=== PATIENT | male | born 1940 | race Hispanic/Latino ===

== ENCOUNTER 2017-10-05 05:49 | Inpatient (IN) | payer MEDICARE, OTHER ==
[2017-10-05 05:50] VITALS: BMI 23.6
--- NOTE | 2017-10-05 06:20 | C.PDOC ---
History Of Present Illness The patient presents to the ED for evaluation, stating he does not feel well and is experiencing numbness to his fingers and toes. He is on Milrinone drip through a right port-a-cath. He is speaking in complete sentences and denies chest pain, palpitations, and shortness of breath. Time Seen by Provider: 10/05/17 06:07 Chief Complaint (Nursing): Medical Clearance History Per: Patient History/Exam Limitations: no limitations Past Medical History Reviewed: Historical Data, Nursing Documentation, Vital Signs Vital Signs: Last Vital Signs Temp 98.4 F 10/05/17 06:06 Pulse 111 H 10/05/17 06:06 Resp 24 10/05/17 06:06 BP 123/78 10/05/17 06:06 Pulse Ox 97 10/05/17 06:46 - Medical History PMH: CHF, COPD, Depression, HTN, Hypercholesterolemia, Peripheral Edema, Pneumonia, Chronic Kidney Disease (BLADDER CA WITH SURGERY) Surgical History: Cholecystectomy, Coronary Stent (ptca 05/2015) Denies: Pacemaker - [facility] Procedures CORONAR ARTERIOGR-1 CATH (05/14/15) CORONAR ARTERIOGR-2 CATH (12/06/14) CORONARY ARTERY STENT INSERTION [id number] (12/06/14) INJECT/INFUSE PLATELET INHIBITOR (12/06/14) INSERTION OF ONE VASCULAR STENT (05/14/15) INSERTION OF VAD INTO CHEST SUBCU/FASCIA, PERC APPROACH (09/25/15) INSRT OF DRUG-ELUTING CORON ARTERY STENTS(S) (05/14/15) INTRODUCTION OF SERUM/TOX/VACCINE INTO MUSCLE, PERC APPROACH (06/26/16) LEFT HEART CARDIAC CATH (12/06/14) LT HEART ANGIOCARDIOGRAM (12/06/14) MEASURE CARDIAC SAMPL & PRESSURE, BILATERAL, PERC (09/25/15) NEBULIZER THERAPY (05/03/15) PACKED CELL TRANSFUSION (07/18/04) PERCUTANEOUS TRANSLUMINAL CORONARY ANGIOPLASTY [PTCA] (05/14/15) PROCEDURE ON SINGLE VESSEL (05/14/15) Family History: States: Unknown Family Hx - Social History Hx Alcohol Use: No Hx Substance Use: No - Immunization History Hx Tetanus Toxoid Vaccination: No Hx Influenza Vaccination: Yes Hx Pneumococcal Vaccination: No Review Of Systems Constitutional: Negative for: Fever, Chills Cardiovascular: Negative for: Chest Pain, Palpitations Respiratory: Negative for: Cough, Shortness of Breath Gastrointestinal: Negative for: Nausea, Vomiting Musculoskeletal: Negative for: Shoulder Pain, Arm Pain Skin: Negative for: Rash, Lesions, Jaundice, Bruising Neurological: Positive for: Numbness (to fingers and toes ) Psych: Negative for: Anxiety Physical Exam - Physical Exam Appears: Non-toxic, No Acute Distress Skin: Warm, Dry Head: Normacephalic Eye(s): bilateral: Normal Inspection Oral Mucosa: Moist Neck: Supple Chest: Symmetrical, No Deformity, No Tenderness, Other (right-sided port-a-cath present ) Cardiovascular: Rhythm Regular, No Murmur Respiratory: No Rales, No Rhonchi, No Wheezing Extremity: Normal ROM, Capillary Refill (less than 2 seconds ) Neurological/Psych: Oriented x3 ED Course And Treatment ECG: Interpreted By Me, Viewed By Me ECG Rhythm: Sinus Rhythm (99), R BBB, Nonspecific Changes O2 Sat by Pulse Oximetry: 97 (on RA) Pulse Ox Interpretation: Normal - Radiology CXR: Interpreted by Me, Viewed By Me CXR Interpretation: Yes: Cardiomegaly, Other (r rosa cath in place). No: Infiltrates, Fracture Progress Note: Bloodwork, UA, CXR, EKG, and Flu swab ordered. NIHSS Stroke Scale - Date/Time Evaluation Performed Date Performed: 10/05/17 Time Performed: 06:13 When Was NIHSS Performed: Baseline - How Severe is the Stroke Level of Consciousness: 0=Alert LOC to Questions: 0=Both comments correct LOC to commands: 0=Obeys both correctly Best Gaze: 0=Normal Visual: 0=No visual loss Facial: 0=Normal Motor Arm - Left: 0=No drift Motor Arm - Right: 0=No drift Motor Leg - Left: 0=No drift Motor Leg - Right: 0=No drift Limb Ataxia: 0=Absent Sensory: 0=Normal Best Language: 0=No aphasia Dysarthia: 0=Normal articulation Extinction & Inattention (Neglect): 0=Normal, no object Score: 0 Disposition Counseled Patient/Family Regarding: Studies Performed, Diagnosis - Disposition Disposition Time: 06:20 Condition: FAIR Forms: [facility] (Albanian) - Clinical Impression Clinical Impression: Medical assessment - Scribe Statement The provider has reviewed the documentation as recorded by the Scribe (Dina Brown) Provider Attestation: All medical record entries made by the Scribe were at my direction and personally dictated by me. I have reviewed the chart and agree that the record accurately reflects my personal performance of the history, physical exam, medical decision making, and the department course for this patient. I have also personally directed, reviewed, and agree with the discharge instructions and disposition. Physician Patient Turnover Patient Signed Over To: Carina Wilder Handoff Comments: pending labs and dispostion
[2017-10-05 06:49] LABS: BASO % 0.7 % (0.0-2.0); EOS # 0.2 K/uL (0.0-0.7); EOS % 2.7 % (0.0-4.0); HEMOGLOBIN 12.3 g/dL (12.0-18.0); LYMPH # 1.1 K/uL (1.0-4.3); LYMPH % 15.8 % (20.0-40.0); MEAN CELL VOLUME 88.1 fL (80.0-94.0); MEAN CORPUSCULAR HEMOGLOBIN 30.4 pg (27.0-31.0); MEAN CORPUSCULAR HGB CONC 34.5 g/dL (33.0-37.0); MONO # 0.5 K/uL (0.0-0.8); MONO % 7.6 % (0.0-10.0); NEUT # 5.1 K/uL (1.8-7.0); NEUT % 73.2 % (50.0-75.0); RBC 4.04 Mil/uL (4.40-5.90); RED CELL DISTRIBUTION WIDTH 15.3 % (11.5-14.5)
[2017-10-05 06:52] LABS: SQUAMOUS EPITHIAL < 1 /hpf (0-5); URINE BACTERIA RARE (<OCC); URINE BILIRUBIN NEGATIVE (NEGATIVE); URINE BLOOD NEGATIVE (NEGATIVE); URINE CLARITY Clear (Clear); URINE COLOR Straw (YELLOW); URINE GLUCOSE (UA) NORMAL (Normal); URINE LEUKOCYTE ESTERASE NEG Leu/uL (Negative); URINE NITRATE POSITIVE (NEGATIVE); URINE PROTEIN NEGATIVE (NEGATIVE); URINE UROBILINOGEN NORMAL mg/dL (0.2-1.0)
[2017-10-05 06:53] LABS: PROTHROMBIN TIME 10.6 SECONDS (9.7-12.2)
[2017-10-05 07:06] LABS: ALB/GLOB RATIO 1.4 (1.0-2.1); ALBUMIN 3.8 g/dL (3.5-5.0); CALCIUM 9.5 mg/dl (8.6-10.4)
[2017-10-05 07:16] LABS: TROPONIN I 0.073 ng/mL (0.00-0.120)
--- NOTE | 2017-10-05 08:59 | RAD ---
PROCEDURE: CHEST RADIOGRAPH, 1 VIEW HISTORY: chest pain COMPARISON: None available. FINDINGS: LUNGS: Subsegmental atelectasis at right base. No pulmonary infiltrate. PLEURA: No pneumothorax or pleural fluid seen. CARDIOVASCULAR: Normal heart size. Right IJ central venous infusion port. OSSEOUS STRUCTURES: No significant abnormalities. VISUALIZED UPPER ABDOMEN: Normal. OTHER FINDINGS: None. IMPRESSION: No acute infiltrate. Right basilar subsegmental atelectasis.
--- NOTE | 2017-10-05 09:11 | CT ---
PROCEDURE: CT HEAD WITHOUT CONTRAST. HISTORY: numbness/tingling hands/feet, headache COMPARISON: None available. TECHNIQUE: Axial computed tomography images were obtained through the head/brain without intravenous contrast. Radiation dose: Total exam DLP = 935.18 mGy-cm. This CT exam was performed using one or more of the following dose reduction techniques: Automated exposure control, adjustment of the mA and/or kV according to patient size, and/or use of iterative reconstruction technique. FINDINGS: HEMORRHAGE: No intracranial hemorrhage. BRAIN: No mass effect or edema. Mild to moderate diffuse age-appropriate cerebral atrophy. Minimal periventricular white matter lucency consistent with chronic microvascular ischemic change. No evidence of acute infarct. VENTRICLES: Unremarkable. No hydrocephalus. CALVARIUM: Unremarkable. PARANASAL SINUSES: Mild chronic ethmoid and right frontal sinusitis. MASTOID AIR CELLS: Trace left mastoid effusion common nonspecific. OTHER FINDINGS: None. IMPRESSION: No intracranial mass, hemorrhage or evidence of acute infarct. Age-appropriate involutional change. Trace left mastoid effusion. Mild chronic ethmoid and right frontal sinusitis. No additional abnormality.
[2017-10-05] MEDS ORDERED: Milrinone 1 mg/ml Inj IV SCH (14:00)
[2017-10-05] MEDS ORDERED: Milrinone 20 MG in Dextrose 5% In Water 80 ML IV SCH (14:30)
--- NOTE | 2017-10-05 15:19 | CP.PCM.CON ---
<Sean Li - Last Filed: 10/05/17 14:45> History of Present Illness - History of Present Illness History of Present Illness: Cardiology Consult Note for Dr. Ambrosio CC: Cold hands and feet Pt is a 77 yo male with PMH of COPD, CKD, bladder CA, HTN, CAD, NC (2014), and CHF on milrinone at home via port-a-cath presents to due to increasing numbness and coldness in b/l hands and feet. Pt states that symptoms began overnight around 2:30 AM. Pt denies any pain at rest or while ambulating. Pt denies any past occurrences. Pt stated that he also had increased shortness of breath, but believes it was due to increased coldness in his extremities. Pt states that he is normally short of breath and requires 3L of O2 via NC at home. Pt is able to ambulate, but becomes short of breath if he has to walk up stairs. At time of interview, pt states that increased shortness of breath had resolved and was comfortable with nasal canula. Pt denied CP, n/v/d, abdominal pain, fever, chills, [place], or dizziness. PMH: COPD (on 3L NC at home), CKD, bladder CA, CAD, anterior wall NC, CHF, and HTN Surg: Port-a-cath placement, cardiac catherization, cystectomy All: NKDA FHx: Non-contributory SH: Former 2-3 PPD for 40 years (quit 2.5 yrs ago), social EtOH use, denied illicit drug use Review of Systems - Review of Systems Review of Systems: 12 point ROS reviewed and is negative other than what is stated in HPI. Past Patient History - Infectious Disease Hx of Infectious Diseases: None - Past Social History Smoking Status: Former Smoker - CARDIAC Hx Congestive Heart Failure: Yes Hx Hypercholesterolemia: Yes Hx Hypertension: Yes Hx Pacemaker: No Hx Peripheral Edema: Yes - PULMONARY Hx Chronic Obstructive Pulmonary Disease (COPD): Yes Hx Pneumonia: Yes - NEUROLOGICAL Hx Paralysis: No - HEENT Hx HEENT Problems: Yes Other/Comment: hearing problem - RENAL Hx Chronic Kidney Disease: Yes (BLADDER CA WITH SURGERY) - ENDOCRINE/METABOLIC Hx Endocrine Disorders: No - HEMATOLOGICAL/ONCOLOGICAL Hx Blood Transfusions: No - INTEGUMENTARY Hx Dermatological Problems: No - MUSCULOSKELETAL/RHEUMATOLOGICAL Hx Musculoskeletal Disorders: No - GASTROINTESTINAL Hx Gastrointestinal Disorders: Yes Other/Comment: hernia- inguinal - GENITOURINARY/GYNECOLOGICAL Hx Genitourinary Disorders: Yes Hx Bladder Cancer: Yes Other/Comment: urostomy - PSYCHIATRIC Hx Depression: Yes Hx Substance Use: No - SURGICAL HISTORY Hx Cholecystectomy: Yes Hx Coronary Stent: Yes (ptca 05/2015) - ANESTHESIA Hx Anesthesia: Yes Hx Anesthesia Reactions: No Meds Allergies/Adverse Reactions: Allergies Allergy/AdvReac Type Severity Reaction Status Date / Time No Known Allergies Allergy Verified 10/05/17 06:16 - Medications Medications: Current Medications Milrinone Lactate/Dextrose 20 (mg/ Dextrose) 100 mls @ 7.26 mls/hr IV .[id number] PING; 0.3 MCG/KG/MIN PRN Reason: Protocol Physical Exam - Constitutional Appears: No Acute Distress - Head Exam Head Exam: NORMAL INSPECTION - Eye Exam Eye Exam: Normal appearance - ENT Exam ENT Exam: Normal Exam - Neck Exam Neck exam: Positive for: Normal Inspection - Respiratory Exam Respiratory Exam: Accessory Muscle Use. absent: Rales, Rhonchi, Wheezes, Respiratory Distress - Cardiovascular Exam Cardiovascular Exam: RRR, +S1, +S2. absent: Diastolic murmur, Gallop, Rubs, Systolic Murmur - GI/Abdominal Exam GI & Abdominal Exam: Soft. absent: Distended, Guarding, Organomegaly, Rebound, Tenderness - Extremities Exam Extremities exam: Positive for: pedal pulses present Additional comments: B/L fingers/toes cold to touch, minimal LE edema, no tenderness on palpation, no erythema - Neurological Exam Neurological exam: Alert, Oriented x3 - Psychiatric Exam Psychiatric exam: Normal Affect - Skin Skin Exam: Dry, Intact, Normal Color Results - Vital Signs Recent Vital Signs: Last Vital Signs Temp 98.4 F 10/05/17 06:06 Pulse 107 H 10/05/17 14:37 Resp 18 10/05/17 14:37 BP 106/67 10/05/17 14:37 Pulse Ox 98 10/05/17 14:37 - Labs Result Diagrams: 10/05/17 06:41 10/05/17 06:41 Labs: Laboratory Results - last 24 hr 10/05/17 10/05/17 10/05/17 06:39 06:41 06:41 WBC 7.0 RBC 4.04 L Hgb 12.3 Hct 35.6 MCV 88.1 MCH 30.4 MCHC 34.5 RDW 15.3 H Plt Count 169 MPV 7.0 L Neut % (Auto) 73.2 Lymph % (Auto) 15.8 L [place] % (Auto) 7.6 Eos % (Auto) 2.7 Baso % (Auto) 0.7 Neut # (Auto) 5.1 Lymph # (Auto) 1.1 [place] # (Auto) 0.5 Eos # (Auto) 0.2 Baso # (Auto) 0.0 PT 10.6 INR 1.0 APTT 30 Sodium Potassium Chloride Carbon Dioxide Anion Gap BUN Creatinine Est GFR ( Amer) Est GFR (Non-Af Amer) Random Glucose Calcium Total Bilirubin AST ALT Alkaline Phosphatase Troponin I NT-Pro-B Natriuret Pep Total Protein Albumin Globulin Albumin/Globulin Ratio Urine Color Straw Urine Clarity Clear Urine pH 6.0 Ur Specific [place] 1.008 Urine Protein Negative Urine Glucose (UA) Normal Urine Ketones Negative Urine Blood Negative Urine Nitrate Positive H Urine Bilirubin Negative Urine Urobilinogen Normal Ur Leukocyte Esterase Neg Urine WBC (Auto) 2 Urine RBC (Auto) 1 Ur Squamous Epith Cells < 1 Urine Bacteria Rare Influenza Typ A,B (EIA) 10/05/17 10/05/17 06:41 07:17 WBC RBC Hgb Hct MCV MCH MCHC RDW Plt Count MPV Neut % (Auto) Lymph % (Auto) [place] % (Auto) Eos % (Auto) Baso % (Auto) Neut # (Auto) Lymph # (Auto) [place] # (Auto) Eos # (Auto) Baso # (Auto) PT INR APTT Sodium 138 Potassium 4.0 Chloride 105 Carbon Dioxide 22 Anion Gap 15 BUN 53 H Creatinine 2.7 H Est GFR ( Amer) 28 Est GFR (Non-Af Amer) 23 Random Glucose 93 Calcium 9.5 Total Bilirubin 0.4 AST 24 ALT 24 Alkaline Phosphatase 76 Troponin I 0.0730 NT-Pro-B Natriuret Pep 919 H Total Protein 6.5 Albumin 3.8 Globulin 2.7 Albumin/Globulin Ratio 1.4 Urine Color Urine Clarity Urine pH Ur Specific [place] Urine Protein Urine Glucose (UA) Urine Ketones Urine Blood Urine Nitrate Urine Bilirubin Urine Urobilinogen Ur Leukocyte Esterase Urine WBC (Auto) Urine RBC (Auto) Ur Squamous Epith Cells Urine Bacteria Influenza Typ A,B (EIA) Negative for flu a/b Assessment & Plan - Assessment and Plan (Free Text) Assessment: 77 yo M with PMH of COPD (on 3L NC at home), CKD, bladder CA, CAD, anterior wall NC, CHF, and HTN presents to due to increased coldness/numbness in hands and feet and increased dyspnea. Due to patient's significant cardiac history, current cardiac status will be evaluated. Pt will also be evaluated for PAD vs Vasculitis. Plan: 1. Chronic CHF with reduced EF - BNP 919 - Cardiac catherization on 11/24/17 revealed RA mean pressure of 8, RV pressure 36/8, PA pressure 36/14, PCWP 14, CO 4.9 L/min, Cardiac Index 2.6L/min/m2 - Echo on 05/31/16 showed EF 20-25%, dilated LV, LA - Echo ordered - Cont Aldactone, Milrinone, Metolazone, Lasix, Lopressor and [place] 2. H/o CAD - Cont ASA, Crestor - Troponin 0.073, trend x2 3. Extremity Parasthesia/Coldness - PAD vs. Vasculitis vs. Neuropathy - LE arterial duplex ordered - ESR, CRP ordered - TSH ordered GI/DVT PPx - Per primary Pt seen and discussed in detail with Dr. Ambrosio. Sean Li, PGY1 <Emerson Ambrosio - Last Filed: 10/05/17 22:31> Meds - Medications Medications: Current Medications Clopidogrel Bisulfate (Plavix) 75 mg PO QAM [facility] Furosemide (Lasix) 40 mg IVP Q12 [facility] Last Admin: 10/05/17 22:30 Dose: 40 mg Heparin Sodium (Porcine) (Heparin) 5,000 units SC Q8 [facility] Last Admin: 10/05/17 22:30 Dose: 5,000 units Home Med (Patient's Own Medication) 2.5 tab PO TID [facility] Last Admin: 10/05/17 18:43 Dose: 2.5 tab Milrinone Lactate/Dextrose 20 (mg/ Dextrose) 100 mls @ 7.26 mls/hr IV .[id number] [facility]; 0.3 MCG/KG/MIN PRN Reason: Protocol Last Admin: 10/05/17 20:40 Dose: Not Given Metolazone (Zaroxolyn) 5 mg PO QWK [facility] Metoprolol Tartrate (Lopressor) 50 mg PO BID [facility] Last Admin: 10/05/17 18:30 Dose: Not Given Potassium Chloride (K-Dur 20 Meq Er Tab) 20 meq PO QWK PING Rosuvastatin Calcium (Crestor) 20 mg PO QPM [facility] Last Admin: 10/05/17 18:41 Dose: 20 mg Spironolactone (Aldactone) 25 mg PO DAILY [facility] Temazepam (Restoril) 15 mg PO HS PRN PRN Reason: Insomnia Results - Vital Signs Recent Vital Signs: Last Vital Signs Temp 97.9 F 10/05/17 19:45 Pulse 102 H 10/05/17 19:45 Resp 18 10/05/17 19:45 BP 111/71 10/05/17 22:30 Pulse Ox 96 10/05/17 19:45 - Labs Result Diagrams: 10/05/17 06:41 10/05/17 06:41 Labs: Laboratory Results - last 24 hr 10/05/17 10/05/17 10/05/17 06:39 06:41 06:41 WBC 7.0 RBC 4.04 L Hgb 12.3 Hct 35.6 MCV 88.1 MCH 30.4 MCHC 34.5 RDW 15.3 H Plt Count 169 MPV 7.0 L Neut % (Auto) 73.2 Lymph % (Auto) 15.8 L [place] % (Auto) 7.6 Eos % (Auto) 2.7 Baso % (Auto) 0.7 Neut # (Auto) 5.1 Lymph # (Auto) 1.1 [place] # (Auto) 0.5 Eos # (Auto) 0.2 Baso # (Auto) 0.0 ESR PT 10.6 INR 1.0 APTT 30 Sodium Potassium Chloride Carbon Dioxide Anion Gap BUN Creatinine Est GFR ( Amer) Est GFR (Non-Af Amer) Random Glucose Calcium Total Bilirubin AST ALT Alkaline Phosphatase Total Creatine Kinase CK-MB (Mass) Troponin I C-React Prot High Sens NT-Pro-B Natriuret Pep Total Protein Albumin Globulin Albumin/Globulin Ratio TSH 3rd Generation Urine Color Straw Urine Clarity Clear Urine pH 6.0 Ur Specific [place] 1.008 Urine Protein Negative Urine Glucose (UA) Normal Urine Ketones Negative Urine Blood Negative Urine Nitrate Positive H Urine Bilirubin Negative Urine Urobilinogen Normal Ur Leukocyte Esterase Neg Urine WBC (Auto) 2 Urine RBC (Auto) 1 Ur Squamous Epith Cells < 1 Urine Bacteria Rare Influenza Typ A,B (EIA) 10/05/17 10/05/17 10/05/17 06:41 07:17 15:44 WBC RBC Hgb Hct MCV MCH MCHC RDW Plt Count MPV Neut % (Auto) Lymph % (Auto) [place] % (Auto) Eos % (Auto) Baso % (Auto) Neut # (Auto) Lymph # (Auto) [place] # (Auto) Eos # (Auto) Baso # (Auto) ESR 21 H PT INR APTT Sodium 138 Potassium 4.0 Chloride 105 Carbon Dioxide 22 Anion Gap 15 BUN 53 H Creatinine 2.7 H Est GFR ( Amer) 28 Est GFR (Non-Af Amer) 23 Random Glucose 93 Calcium 9.5 Total Bilirubin 0.4 AST 24 ALT 24 Alkaline Phosphatase 76 Total Creatine Kinase CK-MB (Mass) Troponin I 0.0730 C-React Prot High Sens NT-Pro-B Natriuret Pep 919 H Total Protein 6.5 Albumin 3.8 Globulin 2.7 Albumin/Globulin Ratio 1.4 TSH 3rd Generation Urine Color Urine Clarity Urine pH Ur Specific [place] Urine Protein Urine Glucose (UA) Urine Ketones Urine Blood Urine Nitrate Urine Bilirubin Urine Urobilinogen Ur Leukocyte Esterase Urine WBC (Auto) Urine RBC (Auto) Ur Squamous Epith Cells Urine Bacteria Influenza Typ A,B (EIA) Negative for flu a/b 10/05/17 10/05/17 10/05/17 15:44 15:44 16:13 WBC RBC Hgb Hct MCV MCH MCHC RDW Plt Count MPV Neut % (Auto) Lymph % (Auto) [place] % (Auto) Eos % (Auto) Baso % (Auto) Neut # (Auto) Lymph # (Auto) [place] # (Auto) Eos # (Auto) Baso # (Auto) ESR PT INR APTT Sodium Potassium Chloride Carbon Dioxide Anion Gap BUN Creatinine Est GFR ( Amer) Est GFR (Non-Af Amer) Random Glucose Calcium Total Bilirubin AST ALT Alkaline Phosphatase Total Creatine Kinase 150 CK-MB (Mass) 3.66 H Troponin I 0.0710 C-React Prot High Sens 0.90 L NT-Pro-B Natriuret Pep Total Protein Albumin Globulin Albumin/Globulin Ratio TSH 3rd Generation 0.65 Urine Color Urine Clarity Urine pH Ur Specific [place] Urine Protein Urine Glucose (UA) Urine Ketones Urine Blood Urine Nitrate Urine Bilirubin Urine Urobilinogen Ur Leukocyte Esterase Urine WBC (Auto) Urine RBC (Auto) Ur Squamous Epith Cells Urine Bacteria Influenza Typ A,B (EIA) Attending/Attestation - Attestation I have personally seen and examined this patient.: Yes I have fully participated in the care of the patient.: Yes I have reviewed all pertinent clinical information: Yes
[2017-10-05 16:21] LABS: TROPONIN I 0.071 ng/mL (0.00-0.120)
[2017-10-05 16:23] LABS: CK-MB 3.66 ng/mL (0.0-3.38)
[2017-10-05] MEDS: ADEMPAS 2.5 MG PO SCH (18:43)
[2017-10-05] MEDS: Milrinone 20 MG in Dextrose 5% In Water 80 ML IV SCH (20:40)
--- NOTE | 2017-10-05 23:44 | CP.PCM.HP ---
History of Present Illness - History of Present Illness History of Present Illness: CC" shortness of breath , Cold hands and feet Pt is a 77 yo male with PMH of COPD, CKD, bladder CA, HTN, CAD, LA (2014), and CHF on milrinone at home via port-a-cath presents to due to increasing numbness and coldness in b/l hands and feet.He has been followed by gasket inspector senior project manager engineering, he has been doing well up untill last night when he develpoed pregressively wworsening shortness of breth, neck pain and cold extremities. Pt states that symptoms began overnight around 2:30 AM. Pt denies any pain at rest or while ambulating. Pt denies any past occurrences. Pt stated that he also had increased shortness of breath, but believes it was due to increased coldness in his extremities. Pt states that he is normally short of breath and requires 3L of O2 via NC at home. Pt is able to ambulate, but becomes short of breath if he has to walk up stairs. At time of interview, pt states that increased shortness of breath had resolved and was comfortable with nasal canula. Pt denied CP, n/v/d, abdominal pain, fever, chills, DAV[place], or dizziness. 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 (quit 2.5 yrs ago), social EtOH use, denied illicit drug use Review of Systems - Review of Systems Systems not reviewed;Unavailable: Acuity of Condition - Constitutional Constitutional: Fatigue, Lethargy, Malaise, Weakness - EENT Eyes: absent: As Per HPI, Blind Spots, Blurred Vision, Change in Vision, Decreased Night Vision, Diplopia, Discharge, Dry Eye, Exophthalmos, Floaters, Irritation, Itchy Eyes, Loss of Peripheral Vision, Pain, Photophobia, Requires Corrective Lenses, Sees Flashes, Spots in Vision, Tunnel Vision, Other Visual Disturbances, Loss of Vision, Other Nose/Mouth/Throat: absent: As Per HPI, Epistaxis, Nasal Congestion, Nasal Discharge, Nasal Obstruction, Nasal Trauma, Nose Pain, Post Nasal Drip, Sinus Pain, Sinus Pressure, Bleeding Gums, Change in Voice, Dental Pain, Dry Mouth, Dysphagia, Halitosis, Hoarsness, Lip Swelling, Mouth Lesions, Mouth Pain, Odynophagia, Sore Throat, Throat Swelling, Tongue Swelling, Facial Pain, Neck Pain, Neck Mass, Other - Gastrointestinal Gastrointestinal: absent: As Per HPI, Abdominal Pain, Belching, Bloating, Change in Bowel Habits, Change in Stool Character, Coffee Ground Emesis, Constipation, Cramping, Diarrhea, Dyspepsia, Dysphagia, Early Satiety, Excessive Flatus, Fecal Incontinence, Heartburn, Hematemesis, Hematochezia, Loose Stools, Melena, Nausea, Odynophagia, Temesmus, Vomiting, Other - Musculoskeletal Musculoskeletal: Muscle Weakness, Myalgias, Neck Pain - Integumentary Integumentary: Dry Skin - Neurological Neurological: Abnormal Gait, Dizziness, Weakness Past Patient History - Infectious Disease Hx of Infectious Diseases: None - Past Medical History & Family History Past Medical History?: Yes - Past Social History Smoking Status: Former Smoker - CARDIAC Hx Cardiac Disorders: Yes Hx Congestive Heart Failure: Yes Hx Hypercholesterolemia: Yes Hx Hypertension: Yes Hx Pacemaker: No Hx Peripheral Edema: Yes - PULMONARY Hx Respiratory Disorders: Yes Hx Chronic Obstructive Pulmonary Disease (COPD): Yes Hx Pneumonia: Yes - NEUROLOGICAL Hx Neurological Disorder: No Hx Paralysis: No - HEENT Hx HEENT Problems: Yes Other/Comment: hearing problem - RENAL Hx Chronic Kidney Disease: Yes (BLADDER CA WITH SURGERY) - ENDOCRINE/METABOLIC Hx Endocrine Disorders: No - HEMATOLOGICAL/ONCOLOGICAL Hx Blood Transfusions: Yes - INTEGUMENTARY Hx Dermatological Problems: No - MUSCULOSKELETAL/RHEUMATOLOGICAL Hx Musculoskeletal Disorders: No Hx Back Pain: Yes Hx Falls: Yes - GASTROINTESTINAL Hx Gastrointestinal Disorders: Yes Other/Comment: hernia- inguinal - GENITOURINARY/GYNECOLOGICAL Hx Genitourinary Disorders: Yes Hx Bladder Cancer: Yes Other/Comment: urostomy - PSYCHIATRIC Hx Psychophysiologic Disorder: Yes Hx Depression: Yes Hx Substance Use: No - SURGICAL HISTORY Hx Surgeries: Yes Hx Cholecystectomy: Yes Hx Coronary Stent: Yes (ptca 05/2015) - ANESTHESIA Hx Anesthesia: Yes Hx Anesthesia Reactions: No Meds Allergies/Adverse Reactions: Allergies Allergy/AdvReac Type Severity Reaction Status Date / Time No Known Allergies Allergy Verified 10/05/17 06:16 Physical Exam - Constitutional Appears: No Acute Distress - Head Exam Head Exam: ATRAUMATIC, NORMAL INSPECTION, NORMOCEPHALIC - Eye Exam Eye Exam: EOMI, Normal appearance, PERRL Pupil Exam: NORMAL ACCOMODATION, PERRL - Respiratory Exam Respiratory Exam: Decreased Breath Sounds, Rhonchi - Cardiovascular Exam Cardiovascular Exam: REGULAR RHYTHM - GI/Abdominal Exam GI & Abdominal Exam: Normal Bowel Sounds, Soft. absent: Tenderness - Rectal Exam Rectal Exam: Deferred - Back Exam Additional comments: decresed sensation b/l feet - Neurological Exam Neurological exam: Alert, Oriented x3 - Psychiatric Exam Psychiatric exam: Normal Affect - Skin Skin Exam: Pallor, Warm Results - Vital Signs Recent Vital Signs: Last Vital Signs Temp 97.9 F 10/05/17 20:30 Pulse 64 10/05/17 20:30 Resp 16 10/05/17 20:30 BP 111/71 10/05/17 22:30 Pulse Ox 96 10/05/17 20:30 - Labs Result Diagrams: 10/05/17 06:41 10/05/17 06:41 Labs: Laboratory Results - last 24 hr 10/05/17 10/05/17 10/05/17 06:39 06:41 06:41 WBC 7.0 RBC 4.04 L Hgb 12.3 Hct 35.6 MCV 88.1 MCH 30.4 MCHC 34.5 RDW 15.3 H Plt Count 169 MPV 7.0 L Neut % (Auto) 73.2 Lymph % (Auto) 15.8 L Grainger % (Auto) 7.6 Eos % (Auto) 2.7 Baso % (Auto) 0.7 Neut # (Auto) 5.1 Lymph # (Auto) 1.1 Grainger # (Auto) 0.5 Eos # (Auto) 0.2 Baso # (Auto) 0.0 ESR PT 10.6 INR 1.0 APTT 30 Sodium Potassium Chloride Carbon Dioxide Anion Gap BUN Creatinine Est GFR ( Amer) Est GFR (Non-Af Amer) Random Glucose Calcium Total Bilirubin AST ALT Alkaline Phosphatase Total Creatine Kinase CK-MB (Mass) Troponin I C-React Prot High Sens NT-Pro-B Natriuret Pep Total Protein Albumin Globulin Albumin/Globulin Ratio TSH 3rd Generation Urine Color Straw Urine Clarity Clear Urine pH 6.0 Ur Specific [place] 1.008 Urine Protein Negative Urine Glucose (UA) Normal Urine Ketones Negative Urine Blood Negative Urine Nitrate Positive H Urine Bilirubin Negative Urine Urobilinogen Normal Ur Leukocyte Esterase Neg Urine WBC (Auto) 2 Urine RBC (Auto) 1 Ur Squamous Epith Cells < 1 Urine Bacteria Rare Influenza Typ A,B (EIA) 10/05/17 10/05/17 10/05/17 06:41 07:17 15:44 WBC RBC Hgb Hct MCV MCH MCHC RDW Plt Count MPV Neut % (Auto) Lymph % (Auto) Grainger % (Auto) Eos % (Auto) Baso % (Auto) Neut # (Auto) Lymph # (Auto) Grainger # (Auto) Eos # (Auto) Baso # (Auto) ESR 21 H PT INR APTT Sodium 138 Potassium 4.0 Chloride 105 Carbon Dioxide 22 Anion Gap 15 BUN 53 H Creatinine 2.7 H Est GFR ( Amer) 28 Est GFR (Non-Af Amer) 23 Random Glucose 93 Calcium 9.5 Total Bilirubin 0.4 AST 24 ALT 24 Alkaline Phosphatase 76 Total Creatine Kinase CK-MB (Mass) Troponin I 0.0730 C-React Prot High Sens NT-Pro-B Natriuret Pep 919 H Total Protein 6.5 Albumin 3.8 Globulin 2.7 Albumin/Globulin Ratio 1.4 TSH 3rd Generation Urine Color Urine Clarity Urine pH Ur Specific [place] Urine Protein Urine Glucose (UA) Urine Ketones Urine Blood Urine Nitrate Urine Bilirubin Urine Urobilinogen Ur Leukocyte Esterase Urine WBC (Auto) Urine RBC (Auto) Ur Squamous Epith Cells Urine Bacteria Influenza Typ A,B (EIA) Negative for flu a/b 10/05/17 10/05/17 10/05/17 15:44 15:44 16:13 WBC RBC Hgb Hct MCV MCH MCHC RDW Plt Count MPV Neut % (Auto) Lymph % (Auto) Grainger % (Auto) Eos % (Auto) Baso % (Auto) Neut # (Auto) Lymph # (Auto) Grainger # (Auto) Eos # (Auto) Baso # (Auto) ESR PT INR APTT Sodium Potassium Chloride Carbon Dioxide Anion Gap BUN Creatinine Est GFR ( Amer) Est GFR (Non-Af Amer) Random Glucose Calcium Total Bilirubin AST ALT Alkaline Phosphatase Total Creatine Kinase 150 CK-MB (Mass) 3.66 H Troponin I 0.0710 C-React Prot High Sens 0.90 L NT-Pro-B Natriuret Pep Total Protein Albumin Globulin Albumin/Globulin Ratio TSH 3rd Generation 0.65 Urine Color Urine Clarity Urine pH Ur Specific [place] Urine Protein Urine Glucose (UA) Urine Ketones Urine Blood Urine Nitrate Urine Bilirubin Urine Urobilinogen Ur Leukocyte Esterase Urine WBC (Auto) Urine RBC (Auto) Ur Squamous Epith Cells Urine Bacteria Influenza Typ A,B (EIA) Assessment & Plan (1) Acute on chronic heart failure Assessment and Plan: most likely its dilated non ischemic cardiomyopathy Status: Acute (2) CHF exacerbation Status: Acute (3) COPD exacerbation Status: Acute
[2017-10-06] MEDS: Milrinone 20 MG in Dextrose 5% In Water 80 ML IV SCH ×2 (02:50→18:27)
[2017-10-06 06:12] LABS: BASO # 0.1 K/uL (0.0-0.2); BASO % 0.9 % (0.0-2.0); EOS # 0.2 K/uL (0.0-0.7); EOS % 3.2 % (0.0-4.0); HEMOGLOBIN 12.2 g/dL (12.0-18.0); LYMPH # 1.3 K/uL (1.0-4.3); LYMPH % 19.7 % (20.0-40.0); MEAN CELL VOLUME 87.7 fL (80.0-94.0); MEAN CORPUSCULAR HEMOGLOBIN 30.6 pg (27.0-31.0); MEAN CORPUSCULAR HGB CONC 34.9 g/dL (33.0-37.0); MONO # 0.7 K/uL (0.0-0.8); MONO % 10.5 % (0.0-10.0); NEUT # 4.2 K/uL (1.8-7.0); NEUT % 65.7 % (50.0-75.0); RBC 3.98 Mil/uL (4.40-5.90); RED CELL DISTRIBUTION WIDTH 15.3 % (11.5-14.5); WHITE BLOOD COUNT 6.3 K/uL (4.8-10.8)
[2017-10-06 10:00] LABS: CALCIUM 9.1 mg/dl (8.6-10.4); MAGNESIUM 1.6 mg/dL (1.6-2.3)
[2017-10-06] MEDS: ADEMPAS 2.5 MG PO SCH ×4 (10:00→18:25)
--- NOTE | 2017-10-06 10:49 | CP.PCM.PN ---
<JenSean - Last Filed: 10/06/17 11:57> Subjective - Date & Time of Evaluation Date of Evaluation: 10/06/17 Time of Evaluation: 10:47 - Subjective Subjective: Cardiology Progress Note for Dr. Ambrosio Pt seen and examined at bedside. No acute overnight events. Pt states the UE/LE numbness/coldness has improved. Pt states that SOB is at baseline. Pt denied CP , palpitations, n/v/d, abdominal pain, fever, chills, [place], or dizziness. Objective - Vital Signs/Intake and Output Vital Signs (last 24 hours): Temp Pulse Resp BP Pulse Ox 97.4 F L 102 H 20 100/63 97 10/06/17 08:00 10/06/17 08:00 10/06/17 08:00 10/06/17 08:00 10/06/17 08:00 Intake and Output: 10/06/17 10/06/17 06:59 18:59 Intake Total 208 Output Total 200 720 Balance -200 -512 - Medications Medications: Current Medications Clopidogrel Bisulfate (Plavix) 75 mg PO QAM [facility] Furosemide (Lasix) 40 mg IVP Q12 [facility] Last Admin: 10/05/17 22:30 Dose: 40 mg Heparin Sodium (Porcine) (Heparin) 5,000 units SC Q8 [facility] Last Admin: 10/06/17 06:08 Dose: 5,000 units Home Med (Patient's Own Medication) 2.5 tab PO TID [facility] Last Admin: 10/05/17 18:43 Dose: 2.5 tab Milrinone Lactate/Dextrose 20 (mg/ Dextrose) 100 mls @ 7.26 mls/hr IV .[id number] [facility]; 0.3 MCG/KG/MIN PRN Reason: Protocol Last Admin: 10/06/17 02:50 Dose: 7.26 mls/hr Metolazone (Zaroxolyn) 5 mg PO QWK [facility] Metoprolol Tartrate (Lopressor) 50 mg PO BID [facility] Last Admin: 10/05/17 18:30 Dose: Not Given Potassium Chloride (K-Dur 20 Meq Er Tab) 20 meq PO QWK [facility] Rosuvastatin Calcium (Crestor) 20 mg PO QPM [facility] Last Admin: 10/05/17 18:41 Dose: 20 mg Spironolactone (Aldactone) 25 mg PO DAILY [facility] Temazepam (Restoril) 15 mg PO HS PRN PRN Reason: Insomnia Last Admin: 10/06/17 01:46 Dose: 15 mg - Labs Labs: 10/06/17 06:03 10/06/17 09:42 PT 10.6 SECONDS (9.7-12.2) 10/05/17 06:41 INR 1.0 10/05/17 06:41 APTT 30 SECONDS (21-34) 10/05/17 06:41 - Head Exam Head Exam: NORMAL INSPECTION - Eye Exam Eye Exam: Normal appearance Pupil Exam: NORMAL ACCOMODATION - ENT Exam ENT Exam: Normal Exam - Neck Exam Neck Exam: Normal Inspection - Respiratory Exam Respiratory Exam: absent: Accessory Muscle Use, Rales, Rhonchi, Wheezes, Respiratory Distress - Cardiovascular Exam Cardiovascular Exam: RRR, +S1, +S2. absent: Clicks, Gallop, Rubs, Murmur - GI/Abdominal Exam GI & Abdominal Exam: Soft. absent: Distended, Guarding, Tenderness, Rebound - Extremities Exam Extremities Exam: Normal Capillary Refill, Normal Inspection. absent: Pedal Edema, Tenderness - Neurological Exam Neurological Exam: Alert, Awake, Oriented x3 - Skin Skin Exam: Dry, Intact, Normal Color, Warm Assessment and Plan - Assessment and Plan (Free Text) Assessment: 77 yo M with PMH of COPD (on 3L NC at home), CKD, bladder CA, CAD, anterior wall [place], CHF, and HTN presents to due to increased coldness/numbness in hands and feet and increased dyspnea. Due to patient's significant cardiac history, current cardiac status will be evaluated. Pt will also be evaluated for PAD vs Vasculitis. Plan: 1. Chronic CHF with reduced EF - BNP 919 - Cardiac catherization on 11/24/17 revealed RA mean pressure of 8, RV pressure 36/8, PA pressure 36/14, PCWP 14, CO 4.9 L/min, Cardiac Index 2.6L/min/m2 - Echo on 05/31/16 showed EF 20-25%, dilated LV, LA - Echo ordered - Cont Aldactone, Milrinone, Metolazone, Lasix, Lopressor and Adempas 2. H/o CAD - Cont ASA, Crestor - Troponin 0.073, 0.071, trend x1 3. Extremity Parasthesia/Coldness - PAD vs. Vasculitis vs. Neuropathy - JEN arterial duplex ordered - ESR 21, CRP 0.9 - TSH 0.65 GI/DVT PPx - Per primary Pt seen and discussed in detail with Dr. Ambrosio. Sean Li, PGY1 <Emerson Ambrosio - Last Filed: 10/07/17 01:50> Objective - Vital Signs/Intake and Output Vital Signs (last 24 hours): Temp Pulse Resp BP Pulse Ox 98 F 109 H 20 107/70 99 10/06/17 23:10 10/06/17 23:10 10/06/17 23:10 10/06/17 23:10 10/06/17 23:10 Intake and Output: 10/06/17 10/07/17 18:59 06:59 Intake Total 747 Output Total 920 Balance -173 - Medications Medications: Current Medications Clopidogrel Bisulfate (Plavix) 75 mg PO QAM [facility] Last Admin: 10/06/17 12:01 Dose: 75 mg Furosemide (Lasix) 40 mg IVP Q12 [facility] Last Admin: 10/06/17 21:52 Dose: Not Given Heparin Sodium (Porcine) (Heparin) 5,000 units SC Q8 [facility] Last Admin: 10/06/17 21:57 Dose: 5,000 units Home Med (Patient's Own Medication) 2.5 tab PO TID [facility] Last Admin: 10/06/17 18:25 Dose: 2.5 tab Milrinone Lactate/Dextrose 20 (mg/ Dextrose) 100 mls @ 7.26 mls/hr IV .[id number] [facility]; 0.3 MCG/KG/MIN PRN Reason: Protocol Last Admin: 10/06/17 18:27 Dose: 7.26 mls/hr Metolazone (Zaroxolyn) 5 mg PO QWK [facility] Metoprolol Tartrate (Lopressor) 50 mg PO BID [facility] Last Admin: 10/06/17 18:25 Dose: Not Given Pneumococcal Polyvalent Vaccine (Pneumovax 23 Vaccine) 0.5 ml IM .ONCE ONE Stop: 10/07/17 12:01 Potassium Chloride (K-Dur 20 Meq Er Tab) 20 meq PO QWK [facility] Rosuvastatin Calcium (Crestor) 20 mg PO QPM [facility] Last Admin: 10/06/17 18:25 Dose: 20 mg Spironolactone (Aldactone) 25 mg PO DAILY [facility] Temazepam (Restoril) 15 mg PO HS PRN PRN Reason: Insomnia Last Admin: 10/06/17 21:57 Dose: 15 mg - Labs Labs: 10/06/17 06:03 10/06/17 09:42 PT 10.6 SECONDS (9.7-12.2) 10/05/17 06:41 INR 1.0 10/05/17 06:41 APTT 30 SECONDS (21-34) 10/05/17 06:41 Attending/Attestation - Attestation I have personally seen and examined this patient.: Yes I have fully participated in the care of the patient.: Yes I have reviewed all pertinent clinical information, including history, physical exam and plan: Yes
[2017-10-06] MEDS ORDERED: Perflutren Lipid Microsphere 1.5 ML SUS IV ONE (11:00)
--- NOTE | 2017-10-06 14:47 | VASCLAB ---
STUDY DESCRIPTION: HISTORY: Cold LE, Previous smoker, Hyperlipidemia PRIORS: No previous arterial exam. TECHNIQUE: Pulse volume recording waveforms and segmental pressures of bilateral lower extremities at multiple levels were obtained. Ankle Brachial Indices (ABIs) were calculated. Report prepared by LEAH Mercado, RVT RIGHT LOWER EXTREMITY: * Brachial artery: Pressure - 93 mmHg. * High thigh: Pressure - 139 mmHg: Ratio - 1.49: PVR waveform - Pulsatile * Low thigh: Pressure - 131 mmHg: Ratio - 1.41 PVR waveform: Pulsatile * Calf: Pressure - 112 mmHg: Ratio - 1.20 PVR waveform: Pulsatile * Posterior tibial Artery: Pressure - 104 mmHg: Ratio - 1.12 PVR waveform: Pulsatile * Dorsalis pedis Artery: Pressure - 109 mmHg: Ratio - 1.17 PVR waveform: Pulsatile * Great toe: Pressure - 78 mmHg: Ratio - 0.84 PVR waveform: Pulsatile Ankle brachial index (SHANICE): 1.17 LEFT LOWER EXTREMITY: * Brachial artery: Pressure - 85 mmHg. * High thigh: Pressure - 131 mmHg: Ratio - 1.41: PVR waveform - Pulsatile * Low thigh: Pressure - 133 mmHg: Ratio - 1.43 PVR waveform: Pulsatile * Calf: Pressure - 115 mmHg: Ratio - 1.24 PVR waveform: Pulsatile * Posterior tibial Artery: Pressure - 113 mmHg: Ratio - 1.22 PVR waveform: Pulsatile * Dorsalis pedis Artery: Pressure - 106 mmHg: Ratio - 1.14 PVR waveform: Pulsatile * Great toe: Pressure - 85 mmHg: Ratio - 0.91 PVR waveform: Pulsatile Ankle brachial index (SHANICE): 1.22 OTHER FINDINGS: IMPRESSION: Right: There was no evidence of hemodynamically significant arterial insufficiency in the right lower extremity. Left: There was no evidence of hemodynamically significant arterial insufficiency in the left lower extremity.
--- NOTE | 2017-10-06 18:23 | CARD ---
APPROVED REPORT EXAM: Two-dimensional and M-mode echocardiogram with Doppler and color Doppler. Other Information Quality : GoodRhythm : INDICATION Dyspnea Cardiac Disease: CAD Congestive Heart Failure COPD 2D DIMENSIONS IVSd0.7 (0.7-1.1cm)LVDd5.1 (3.9-5.9cm) LVOT Diameter2.3 (1.8-2.4cm)PWd0.9 (0.7-1.1cm) LVDs4.4 (2.5-4.0cm)LVEF (%)45.0 (>50%) M-Mode DIMENSIONS Left Atrium (MM)4.15 (2.5-4.0cm)Aortic Root3.64 (2.2-3.7cm) Aortic Cusp Exc.2.51 (1.5-2.0cm) Mitral Valve MV E Sxxsnanb67.0cm/sMV A Biovgwqb697.8cm/sE/A ratio0.3 TDI E/Lateral E'0.0E/Medial E'0.0 LEFT VENTRICLE The Left Ventricle is moderately dilated. There is normal left ventricular wall thickness. Left ventricle systolic function is moderately impaired. The Ejection Fraction is - 40 - 45% There is global hypokinesis of the left ventricle. Transmitral Doppler flow pattern is Grade I-abnormal relaxation pattern. Normal left atrial pressure. No left ventricle thrombus noted on this study using Definity contrast RIGHT VENTRICLE The right ventricle is mildly dilated. The right ventricular systolic function is normal. ATRIA The left atrium is mildly to moderately dilated. The right atrium is mildly dilated. AORTIC VALVE The aortic valve is not well visualized. No aortic regurgitation is present. MITRAL VALVE The mitral valve is normal in structure. Mitral annular calcification is mild. There is no mitral valve regurgitation noted. TRICUSPID VALVE The tricuspid valve is normal in structure. PULMONIC VALVE The pulmonic valve is not well visualized. GREAT VESSELS The aortic root is normal in size. The IVC is normal in size and collapses >50% with inspiration. PERICARDIAL EFFUSION There is no pericardial effusion. <Conclusion> The Left Ventricle is moderately dilated. Left ventricle systolic function is moderately impaired. The Ejection Fraction is - 40 - 45%. There is global hypokinesis of the left ventricle using IV contrast with Definity. Transmitral Doppler flow pattern is Grade I-abnormal relaxation pattern. Normal left atrial pressure. No left ventricle thrombus noted on this study using Definity contrast The right ventricular systolic function is normal. No significant valvular abnormality. There is no pericardial effusion.
--- NOTE | 2017-10-06 21:51 | CARD ---
APPROVED REPORT EKG Measurement Heart [id number] <Conclusion> Sinus rhythm with marked sinus arrhythmia Right bundle branch block Anteroseptal infarct, age undetermined cannot be excluded. Abnormal ECG
--- NOTE | 2017-10-06 22:46 | CP.PCM.PN ---
Subjective - Date & Time of Evaluation Date of Evaluation: 10/06/17 Time of Evaluation: 18:30 - Subjective Subjective: Pt seen and examined at bedside.is on IV milrinone drip, feeling better, No acute overnight events. Pt states the UE/LE numbness/coldness has improved. Pt states that SOB is at baseline. Pt denied CP, palpitations, n/v/d, abdominal pain, fever, chills, [place], or dizziness. Objective - Vital Signs/Intake and Output Vital Signs (last 24 hours): Temp Pulse Resp BP Pulse Ox 98.0 F 87 20 105/67 98 10/06/17 15:18 10/06/17 16:45 10/06/17 15:18 10/06/17 21:52 10/06/17 15:43 Intake and Output: 10/06/17 10/07/17 18:59 06:59 Intake Total 747 Output Total 920 Balance -173 - Medications Medications: Current Medications Clopidogrel Bisulfate (Plavix) 75 mg PO QAM [facility] Last Admin: 10/06/17 12:01 Dose: 75 mg Furosemide (Lasix) 40 mg IVP Q12 [facility] Last Admin: 10/06/17 21:52 Dose: Not Given Heparin Sodium (Porcine) (Heparin) 5,000 units SC Q8 [facility] Last Admin: 10/06/17 21:57 Dose: 5,000 units Home Med (Patient's Own Medication) 2.5 tab PO TID [facility] Last Admin: 10/06/17 18:25 Dose: 2.5 tab Milrinone Lactate/Dextrose 20 (mg/ Dextrose) 100 mls @ 7.26 mls/hr IV .[id number] [facility]; 0.3 MCG/KG/MIN PRN Reason: Protocol Last Admin: 10/06/17 18:27 Dose: 7.26 mls/hr Metolazone (Zaroxolyn) 5 mg PO QWK [facility] Metoprolol Tartrate (Lopressor) 50 mg PO BID [facility] Last Admin: 10/06/17 18:25 Dose: Not Given Pneumococcal Polyvalent Vaccine (Pneumovax 23 Vaccine) 0.5 ml IM .ONCE ONE Stop: 10/07/17 12:01 Potassium Chloride (K-Dur 20 Meq Er Tab) 20 meq PO QWK [facility] Rosuvastatin Calcium (Crestor) 20 mg PO QPM [facility] Last Admin: 10/06/17 18:25 Dose: 20 mg Spironolactone (Aldactone) 25 mg PO DAILY [facility] Temazepam (Restoril) 15 mg PO HS PRN PRN Reason: Insomnia Last Admin: 10/06/17 21:57 Dose: 15 mg - Labs Labs: 10/06/17 06:03 10/06/17 09:42 PT 10.6 SECONDS (9.7-12.2) 10/05/17 06:41 INR 1.0 10/05/17 06:41 APTT 30 SECONDS (21-34) 10/05/17 06:41 - Constitutional Appears: No Acute Distress - Head Exam Head Exam: ATRAUMATIC, NORMAL INSPECTION, NORMOCEPHALIC - Eye Exam Eye Exam: EOMI, Normal appearance, PERRL Pupil Exam: NORMAL ACCOMODATION, PERRL - Respiratory Exam Respiratory Exam: Decreased Breath Sounds, Rales, Rhonchi - Cardiovascular Exam Cardiovascular Exam: REGULAR RHYTHM, +S1, +S2. absent: Murmur - GI/Abdominal Exam GI & Abdominal Exam: Soft, Normal Bowel Sounds. absent: Tenderness Assessment and Plan (1) Acute on chronic heart failure Status: Acute (2) CHF exacerbation Status: Acute (3) COPD exacerbation Status: Acute (4) HTN (hypertension) Status: Acute
[2017-10-07] MEDS: Milrinone 20 MG in Dextrose 5% In Water 80 ML IV SCH ×2 (06:33→23:21)
[2017-10-07 08:35] VITALS: RESP 20
[2017-10-07] MEDS: ADEMPAS 2.5 MG PO SCH ×3 (10:49→18:33)
[2017-10-07] MEDS ORDERED: Influenza Vaccine 60 mcg/0.5 mL SYR (4YR UP) IM ONE (12:00)
[2017-10-07] MEDS ORDERED: Pneumococcal 23-Valent Vaccine IM ONE (12:00)
--- NOTE | 2017-10-07 18:34 | CP.PCM.PN ---
<Sean Li - Last Filed: 10/07/17 18:31> Subjective - Date & Time of Evaluation Date of Evaluation: 10/07/17 Time of Evaluation: 18:31 - Subjective Subjective: Cardiology Progress Note for Dr. Ambrosio Pt seen and examined at bedside. No acute overnight events. Pt states that SOB is at baseline with 3L NC. Pt states that numbness is relieved, but coldness is still present in hands and feet. Pt denied CP, n/v/d, abdominal pain, fever, chills, [place], or dizziness. Objective - Vital Signs/Intake and Output Vital Signs (last 24 hours): Temp Pulse Resp BP Pulse Ox 97.5 F L 91 H 20 103/67 96 10/07/17 15:22 10/07/17 16:00 10/07/17 15:22 10/07/17 15:22 10/07/17 15:22 Intake and Output: 10/07/17 10/07/17 06:59 18:59 Intake Total 59 Output Total 400 Balance -341 - Medications Medications: Current Medications Clopidogrel Bisulfate (Plavix) 75 mg PO QAM [facility] Last Admin: 10/07/17 10:49 Dose: 75 mg Furosemide (Lasix) 40 mg IVP Q12 [facility] Last Admin: 10/07/17 10:48 Dose: Not Given Heparin Sodium (Porcine) (Heparin) 5,000 units SC Q8 [facility] Last Admin: 10/07/17 14:26 Dose: 5,000 units Home Med (Patient's Own Medication) 2.5 tab PO TID [facility] Last Admin: 10/07/17 14:29 Dose: 2.5 tab Milrinone Lactate/Dextrose 20 (mg/ Dextrose) 100 mls @ 7.26 mls/hr IV .[id number] [facility]; 0.3 MCG/KG/MIN PRN Reason: Protocol Last Admin: 10/07/17 06:33 Dose: 7.26 mls/hr Metolazone (Zaroxolyn) 5 mg PO QWK [facility] Metoprolol Tartrate (Lopressor) 50 mg PO BID [facility] Last Admin: 10/07/17 18:05 Dose: Not Given Potassium Chloride (K-Dur 20 Meq Er Tab) 20 meq PO QWK [facility] Rosuvastatin Calcium (Crestor) 20 mg PO QPM [facility] Last Admin: 10/06/17 18:25 Dose: 20 mg Spironolactone (Aldactone) 25 mg PO DAILY [facility] Last Admin: 10/07/17 10:48 Dose: Not Given Temazepam (Restoril) 15 mg PO HS PRN PRN Reason: Insomnia Last Admin: 10/06/17 21:57 Dose: 15 mg - Labs Labs: 10/06/17 06:03 10/06/17 09:42 PT 10.6 SECONDS (9.7-12.2) 10/05/17 06:41 INR 1.0 10/05/17 06:41 APTT 30 SECONDS (21-34) 10/05/17 06:41 - Constitutional Appears: No Acute Distress - Head Exam Head Exam: NORMAL INSPECTION - Eye Exam Eye Exam: Normal appearance - ENT Exam ENT Exam: Normal Exam - Neck Exam Neck Exam: Normal Inspection - Respiratory Exam Respiratory Exam: Wheezes (b/l). absent: Accessory Muscle Use, Rales, Rhonchi, Respiratory Distress - Cardiovascular Exam Cardiovascular Exam: RRR, +S1, +S2. absent: Clicks, Gallop, Rubs, Murmur - GI/Abdominal Exam GI & Abdominal Exam: Soft. absent: Distended, Guarding, Tenderness, Rebound - Extremities Exam Extremities Exam: Pedal Edema - Neurological Exam Neurological Exam: Alert, Awake, Oriented x3 - Skin Skin Exam: Dry, Intact, Normal Color, Warm Assessment and Plan - Assessment and Plan (Free Text) Assessment: 77 yo M with PMH of COPD (on 3L NC at home), CKD, bladder CA, CAD, anterior wall TN, CHF, and HTN presents to due to increased coldness/numbness in hands and feet and increased dyspnea. Due to patient's significant cardiac history, current cardiac status will be evaluated. Pt will also be evaluated for PAD vs Vasculitis. Plan: 1. Chronic CHF with reduced EF - BNP 919 - Cardiac catherization on 11/24/17 revealed RA mean pressure of 8, RV pressure 36/8, PA pressure 36/14, PCWP 14, CO 4.9 L/min, Cardiac Index 2.6L/min/m2 - Echo on 05/31/16 showed EF 20-25%, dilated LV, LA - Echo showed EF 40-45%, LV dilated, and global hypokinesis - Cont Aldactone, Milrinone, Metolazone, Lasix, Lopressor and [place] 2. H/o CAD - Cont ASA, Crestor - Troponin 0.073, 0.071, trend x1 3. Extremity Parasthesia/Coldness - PAD vs. Vasculitis vs. Neuropathy - LE arterial duplex ordered - ESR 21, CRP 0.9 - TSH 0.65 GI/DVT PPx - Per primary Dispo: Pt is clear from cardiology standpoint for discharge, cont current medications. At this time we will sign off, please reconsult as needed. Pt seen and discussed in detail with Dr. Ambrosio. Sean Li, PGY1 <Emerson Ambrosio - Last Filed: 10/07/17 23:56> Objective - Vital Signs/Intake and Output Vital Signs (last 24 hours): Temp Pulse Resp BP Pulse Ox 97.5 F L 91 H 20 105/67 96 10/07/17 15:22 10/07/17 16:00 10/07/17 15:22 10/07/17 23:21 10/07/17 15:22 - Medications Medications: Current Medications Clopidogrel Bisulfate (Plavix) 75 mg PO QAM [facility] Last Admin: 10/07/17 10:49 Dose: 75 mg Furosemide (Lasix) 40 mg IVP Q12 [facility] Last Admin: 10/07/17 22:03 Dose: Not Given Heparin Sodium (Porcine) (Heparin) 5,000 units SC Q8 [facility] Last Admin: 10/07/17 22:09 Dose: 5,000 units Home Med (Patient's Own Medication) 2.5 tab PO TID [facility] Last Admin: 10/07/17 18:33 Dose: 2.5 tab Milrinone Lactate/Dextrose 20 (mg/ Dextrose) 100 mls @ 7.26 mls/hr IV .[id number] [facility]; 0.3 MCG/KG/MIN PRN Reason: Protocol Last Admin: 10/07/17 23:21 Dose: 7.26 mls/hr Metolazone (Zaroxolyn) 5 mg PO QWK [facility] Metoprolol Tartrate (Lopressor) 50 mg PO BID [facility] Last Admin: 10/07/17 18:05 Dose: Not Given Potassium Chloride (K-Dur 20 Meq Er Tab) 20 meq PO QWK [facility] Rosuvastatin Calcium (Crestor) 20 mg PO QPM [facility] Last Admin: 10/07/17 18:32 Dose: 20 mg Spironolactone (Aldactone) 25 mg PO DAILY PING Last Admin: 10/07/17 10:48 Dose: Not Given Temazepam (Restoril) 15 mg PO HS PRN PRN Reason: Insomnia Last Admin: 10/07/17 22:13 Dose: 15 mg - Labs Labs: 10/06/17 06:03 10/06/17 09:42 PT 10.6 SECONDS (9.7-12.2) 10/05/17 06:41 INR 1.0 10/05/17 06:41 APTT 30 SECONDS (21-34) 10/05/17 06:41 Attending/Attestation - Attestation I have personally seen and examined this patient.: Yes I have fully participated in the care of the patient.: Yes I have reviewed all pertinent clinical information, including history, physical exam and plan: Yes
--- NOTE | 2017-10-07 22:37 | CP.PCM.PN ---
Subjective - Date & Time of Evaluation Date of Evaluation: 10/07/17 Time of Evaluation: 18:45 - Subjective Subjective: Pt still feels his feet to be cold, less short of breath, is on IV milrinone drip, feeling better, No acute overnight events. Pt denied CP, palpitations, n/ v/d, abdominal pain, fever, chills, [place], or dizziness. Objective - Vital Signs/Intake and Output Vital Signs (last 24 hours): Temp Pulse Resp BP Pulse Ox 97.5 F L 91 H 20 105/67 96 10/07/17 15:22 10/07/17 16:00 10/07/17 15:22 10/07/17 22:03 10/07/17 15:22 - Medications Medications: Current Medications Clopidogrel Bisulfate (Plavix) 75 mg PO QAM [facility] Last Admin: 10/07/17 10:49 Dose: 75 mg Furosemide (Lasix) 40 mg IVP Q12 [facility] Last Admin: 10/07/17 22:03 Dose: Not Given Heparin Sodium (Porcine) (Heparin) 5,000 units SC Q8 [facility] Last Admin: 10/07/17 22:09 Dose: 5,000 units Home Med (Patient's Own Medication) 2.5 tab PO TID [facility] Last Admin: 10/07/17 18:33 Dose: 2.5 tab Milrinone Lactate/Dextrose 20 (mg/ Dextrose) 100 mls @ 7.26 mls/hr IV .[id number] [facility]; 0.3 MCG/KG/MIN PRN Reason: Protocol Last Admin: 10/07/17 06:33 Dose: 7.26 mls/hr Metolazone (Zaroxolyn) 5 mg PO QWK [facility] Metoprolol Tartrate (Lopressor) 50 mg PO BID [facility] Last Admin: 10/07/17 18:05 Dose: Not Given Potassium Chloride (K-Dur 20 Meq Er Tab) 20 meq PO QWK [facility] Rosuvastatin Calcium (Crestor) 20 mg PO QPM [facility] Last Admin: 10/07/17 18:32 Dose: 20 mg Spironolactone (Aldactone) 25 mg PO DAILY [facility] Last Admin: 10/07/17 10:48 Dose: Not Given Temazepam (Restoril) 15 mg PO HS PRN PRN Reason: Insomnia Last Admin: 02/02/18 22:13 Dose: 15 mg - Labs Labs: 10/06/17 06:03 10/06/17 09:42 PT 10.6 SECONDS (9.7-12.2) 10/05/17 06:41 INR 1.0 10/05/17 06:41 APTT 30 SECONDS (21-34) 10/05/17 06:41 - Constitutional Appears: No Acute Distress - Head Exam Head Exam: ATRAUMATIC, NORMAL INSPECTION, NORMOCEPHALIC - Eye Exam Eye Exam: EOMI, Normal appearance, PERRL Pupil Exam: NORMAL ACCOMODATION, PERRL - Respiratory Exam Respiratory Exam: Decreased Breath Sounds, Rales, Rhonchi - Cardiovascular Exam Cardiovascular Exam: REGULAR RHYTHM, +S1, +S2. absent: Murmur - GI/Abdominal Exam GI & Abdominal Exam: Soft, Normal Bowel Sounds. absent: Tenderness Assessment and Plan (1) Acute on chronic heart failure Status: Acute (2) CHF exacerbation Status: Acute (3) COPD exacerbation Status: Acute (4) HTN (hypertension) Status: Acute
[2017-10-08] MEDS: ADEMPAS 2.5 MG PO SCH ×3 (11:38→18:42)
--- NOTE | 2017-10-08 15:03 | PCM.HF ---
Heart Failure Core Measure - Heart Failure Ejection Fraction: 40 % or Greater VANIA Inhibitor Prescribed: No Contraindication/Reason for not providing: EF > 40 Beta-Miracle Prescribed: None Contraindication/Reason for not providing: LOPRESSOR 50 MG PO BID Angiotensin II Receptor Miracle Prescribed: No Contraindication/Reason for not providing: EF >40 AnticoagulationTherapy for Atrial Fibrillation/Atrialflutter: No Contraindication/Reason for not providing: NO H/O AFIB Aldosterone Antagonist Prescribed: No Contraindication/Reason for not providing: EF > 40; ON MILRINONE GTT Hydralazine Nitrate Prescribed: No Contraindication/Reason for not providing: EF > 40; ON MILRINONE GTT Implantable Cardioverter Defibrillator Therapy: No Contraindication/Reason for not providing: EF > 40; ON MILRINONE GTT Cardiac Resynchronization Therapy Prescribed: No Contraindication/Reason for not providing: EF > 40; ON MILRINONE GTT - Follow up Will be discharged to: Home Follow Up Date (must be within 7 days from discharge): 10/12/17 Follow Up Time: 09:00
--- NOTE | 2017-10-08 15:51 | CP.PCM.PN ---
Subjective - Date & Time of Evaluation Date of Evaluation: 10/08/17 Time of Evaluation: 15:49 - Subjective Subjective: PT SEEN BY DR. SEALS DURING ROUNDS. CLEARED FOR D/C HOME TODAY. NO NEW RX GIVEN. PT TO CONTINUE ALL HOME MEDICATIONS AND MILRINONE GTT ALREADY TAKING. PT HAS ALREADY BEEN CLEARED BY CARDIOLOGY OF YESTERDAY. TO F/U WITH CARDIOLOGY AND DR. SEALS IN THE OFFICE THIS WEEK. NO FURTHER ORDERS. Objective - Vital Signs/Intake and Output Vital Signs (last 24 hours): Temp Pulse Resp BP Pulse Ox 98.9 F 100 H 20 106/71 96 10/08/17 08:04 10/08/17 08:04 10/08/17 08:04 10/08/17 11:36 10/08/17 08:04 Intake and Output: 10/08/17 10/08/17 06:59 18:59 Intake Total 596.6 Output Total 600 Balance -3.4 - Medications Medications: Current Medications Clopidogrel Bisulfate (Plavix) 75 mg PO QAM [facility] Last Admin: 10/08/17 11:35 Dose: 75 mg Furosemide (Lasix) 40 mg IVP Q12 [facility] Last Admin: 10/08/17 11:36 Dose: 40 mg Heparin Sodium (Porcine) (Heparin) 5,000 units SC Q8 [facility] Last Admin: 10/08/17 06:38 Dose: 5,000 units Home Med (Patient's Own Medication) 2.5 tab PO TID [facility] Last Admin: 10/08/17 11:38 Dose: 2.5 tab Milrinone Lactate/Dextrose 20 (mg/ Dextrose) 100 mls @ 7.26 mls/hr IV .[id number] [facility]; 0.3 MCG/KG/MIN PRN Reason: Protocol Last Admin: 10/07/17 23:21 Dose: 7.26 mls/hr Metolazone (Zaroxolyn) 5 mg PO QWK [facility] Metoprolol Tartrate (Lopressor) 50 mg PO BID [facility] Last Admin: 10/08/17 11:35 Dose: 50 mg Potassium Chloride (K-Dur 20 Meq Er Tab) 20 meq PO QWK [facility] Rosuvastatin Calcium (Crestor) 20 mg PO QPM [facility] Last Admin: 10/07/17 18:32 Dose: 20 mg Spironolactone (Aldactone) 25 mg PO DAILY [facility] Last Admin: 10/08/17 11:37 Dose: 25 mg Temazepam (Restoril) 15 mg PO HS PRN PRN Reason: Insomnia Last Admin: 10/07/17 22:13 Dose: 15 mg - Labs Labs: 10/06/17 06:03 10/06/17 09:42 PT 10.6 SECONDS (9.7-12.2) 10/05/17 06:41 INR 1.0 10/05/17 06:41 APTT 30 SECONDS (21-34) 10/05/17 06:41
[2017-10-08 17:15] VITALS: BP 112/77; PULSE 87; TEMP 98.1; O2SAT 100
--- NOTE | 2017-10-09 00:20 | CP.PCM.DIS ---
Provider - Provider Date of Admission: 10/05/17 14:44 Attending physician: Stas Carroll MD Diagnosis - Discharge Diagnosis (1) Acute on chronic heart failure Status: Acute (2) CHF exacerbation Status: Acute (3) COPD exacerbation Status: Acute (4) HTN (hypertension) Status: Acute Hospital Course - Lab Results Lab Results: Most Recent Lab Values WBC 6.3 K/uL (4.8-10.8) 10/06/17 06:03 RBC 3.98 Mil/uL (4.40-5.90) L 10/06/17 06:03 Hgb 12.2 g/dL (12.0-18.0) 10/06/17 06:03 Hct 34.9 % (35.0-51.0) L 10/06/17 06:03 MCV 87.7 fL (80.0-94.0) 10/06/17 06:03 MCH 30.6 pg (27.0-31.0) 10/06/17 06:03 MCHC 34.9 g/dL (33.0-37.0) 10/06/17 06:03 RDW 15.3 % (11.5-14.5) H 10/06/17 06:03 Plt Count 156 K/uL (130-400) 10/06/17 06:03 MPV 7.0 fL (7.2-11.7) L 10/06/17 06:03 Neut % (Auto) 65.7 % (50.0-75.0) 10/06/17 06:03 Lymph % (Auto) 19.7 % (20.0-40.0) L 10/06/17 06:03 [place] % (Auto) 10.5 % (0.0-10.0) H 10/06/17 06:03 Eos % (Auto) 3.2 % (0.0-4.0) 10/06/17 06:03 Baso % (Auto) 0.9 % (0.0-2.0) 10/06/17 06:03 Neut # (Auto) 4.2 K/uL (1.8-7.0) 10/06/17 06:03 Lymph # (Auto) 1.3 K/uL (1.0-4.3) 10/06/17 06:03 [place] # (Auto) 0.7 K/uL (0.0-0.8) 10/06/17 06:03 Eos # (Auto) 0.2 K/uL (0.0-0.7) 10/06/17 06:03 Baso # (Auto) 0.1 K/uL (0.0-0.2) 10/06/17 06:03 ESR 21 mm/hr (0-15) H 10/05/17 15:44 PT 10.6 SECONDS (9.7-12.2) 10/05/17 06:41 INR 1.0 10/05/17 06:41 APTT 30 SECONDS (21-34) 10/05/17 06:41 Sodium 133 mmol/L (132-148) 10/06/17 09:42 Potassium 3.8 mmol/L (3.6-5.2) 10/06/17 09:42 Chloride 105 mmol/L (98-107) 10/06/17 09:42 Carbon Dioxide 21 mmol/L (22-30) L 10/06/17 09:42 Anion Gap 12 (10-20) 10/06/17 09:42 BUN 48 mg/dL (9-20) H 10/06/17 09:42 Creatinine 2.4 mg/dL (0.8-1.5) H 10/06/17 09:42 Est GFR ( Amer) 32 10/06/17 09:42 Est GFR (Non-Af Amer) 27 10/06/17 09:42 Random Glucose 74 mg/dL (75-110) L 10/06/17 09:42 Calcium 9.1 mg/dl (8.6-10.4) 10/06/17 09:42 Magnesium 1.6 mg/dL (1.6-2.3) 10/06/17 09:42 Total Bilirubin 0.4 mg/dL (0.2-1.3) 10/05/17 06:41 AST 24 U/L (17-59) 10/05/17 06:41 ALT 24 U/L (21-72) 10/05/17 06:41 Alkaline Phosphatase 76 U/L (38-126) 10/05/17 06:41 Total Creatine Kinase 150 U/L (55-170) 10/05/17 15:44 CK-MB (Mass) 3.66 ng/mL (0.0-3.38) H 10/05/17 15:44 Troponin I 0.0710 ng/mL (0.00-0.120) 10/05/17 15:44 C-React Prot High Sens 0.90 mg/L (1.00-3.00) L 10/05/17 15:44 NT-Pro-B Natriuret Pep 919 pg/mL (0-900) H 10/05/17 06:41 Total Protein 6.5 g/dL (6.3-8.3) 10/05/17 06:41 Albumin 3.8 g/dL (3.5-5.0) 10/05/17 06:41 Globulin 2.7 gm/dL (2.2-3.9) 10/05/17 06:41 Albumin/Globulin Ratio 1.4 (1.0-2.1) 10/05/17 06:41 TSH 3rd Generation 0.65 mIU/L (0.46-4.68) 10/05/17 16:13 Urine Color Straw (YELLOW) 10/05/17 06:39 Urine Clarity Clear (Clear) 10/05/17 06:39 Urine pH 6.0 (5.0-8.0) 10/05/17 06:39 Ur Specific [place] 1.008 (1.003-1.030) 10/05/17 06:39 Urine Protein Negative mg/dL (NEGATIVE) 10/05/17 06:39 Urine Glucose (UA) Normal mg/dL (Normal) 10/05/17 06:39 Urine Ketones Negative mg/dL (NEGATIVE) 10/05/17 06:39 Urine Blood Negative (NEGATIVE) 10/05/17 06:39 Urine Nitrate Positive (NEGATIVE) H 10/05/17 06:39 Urine Bilirubin Negative (NEGATIVE) 10/05/17 06:39 Urine Urobilinogen Normal mg/dL (0.2-1.0) 10/05/17 06:39 Ur Leukocyte Esterase Neg Lis/uL (Negative) 10/05/17 06:39 Urine WBC (Auto) 2 /hpf (0-5) 10/05/17 06:39 Urine RBC (Auto) 1 /hpf (0-3) 10/05/17 06:39 Ur Squamous Epith Cells < 1 /hpf (0-5) 10/05/17 06:39 Urine Bacteria Rare (<OCC) 10/05/17 06:39 Influenza Typ A,B (EIA) Negative for flu a/b (NEGATIVE) 10/05/17 07:17 - Hospital Course Hospital Course: PT SEEN BY DR. CARROLL DURING ROUNDS. CLEARED FOR D/C HOME TODAY. NO NEW RX GIVEN. PT TO CONTINUE ALL HOME MEDICATIONS AND MILRINONE GTT ALREADY TAKING. PT HAS ALREADY BEEN CLEARED BY CARDIOLOGY OF YESTERDAY. TO F/U WITH CARDIOLOGY AND DR. CARROLL IN THE OFFICE THIS WEEK. NO FURTHER ORDERS. Discharge Exam - Head Exam Head Exam: ATRAUMATIC, NORMAL INSPECTION, NORMOCEPHALIC Discharge Plan - Follow Up Plan Condition: FAIR Disposition: HOME/ ROUTINE Instructions: Heart Failure (DC) Additional Instructions: -FOLLOW UP WITH DR. CARROLL IN THE OFFICE WITHIN 5-7 DAYS OF DISCHARGE---CALL THE OFFICE ON TUESDAY AND MAKE YOUR APPT. -FOLLOW UP WITH DR. AMBROSIO IN THE OFFICE WITHIN 5-7 DAYS OF DISCHARGE---CALL THE OFFICE ON TUESDAY AND MAKE YOUR APPT. -CONTINUE YOUR HOME MEDICATIONS USUAL. PLEASE DO NOT SKIP ANY DOSES OF YOUR MEDICATIONS IT WILL AFFECT YOUR HEART WHEN YOU SKIP DOSES. -IF YOU HAVE FURTHER CONCERNS OR QUESTIONS, CONTACT DR. CARROLL'S OFFICE. Referrals: Emerson Ambrosio MD [Staff Provider] -
[2017-10-12] MEDS ORDERED: metOLazone 5 MG TAB PO SCH (10:00)
[2017-10-12] MEDS ORDERED: Potassium Chloride 20 mEq ER Tab PO SCH (10:00)
== END 2017-10-08 20:00 | disposition home or self-care (01) | DRG 292 ==
LOC: C.ER 05:49 → C.9E 09:25 → INTOOBSV 09:25 → OBSVTOIN 14:44 → C.6T 19:11
PROVIDERS: ADMIT Internal Medicine; ATTEND Internal Medicine
PROC: 3E0234Z Introduction of Serum, Toxoid and Vaccine into Muscle, Percutaneous Approach (ICD-10-PCS; principal; 2017-10-07)
DX: I13.0 Hypertensive heart and chronic kidney disease with heart failure and stage 1 through stage 4 chronic kidney disease, or unspecified chronic kidney disease (principal); J44.1 Chronic obstructive pulmonary disease with (acute) exacerbation; I42.0 Dilated cardiomyopathy; E78.5 Hyperlipidemia, unspecified; I25.10 Atherosclerotic heart disease of native coronary artery without angina pectoris; I25.2 Old myocardial infarction; I50.9 Heart failure, unspecified; N18.9 Chronic kidney disease, unspecified; Z85.51 Personal history of malignant neoplasm of bladder; Z87.01 Personal history of pneumonia (recurrent); Z87.891 Personal history of nicotine dependence; Z95.5 Presence of coronary angioplasty implant and graft; J32.1 Chronic frontal sinusitis; Z23 Encounter for immunization